=== PATIENT | female | born 1965 | race Caucasian/White ===

== ENCOUNTER 2022-05-09 12:43 | Outpatient (CLI) | payer OTHER | END 2022-05-09 12:53 | disposition home or self-care (01) | LOC: LAB 12:43 | PROVIDERS: ATTEND Urology | DX: N30.00 Acute cystitis without hematuria (principal) ==

== ENCOUNTER 2022-05-09 13:41 | Outpatient (CLI) | payer OTHER | END 2022-05-09 13:48 | disposition home or self-care (01) | LOC: RAD 13:41 | PROVIDERS: ATTEND Urology | DX: N20.0 Calculus of kidney (principal); N30.00 Acute cystitis without hematuria ==

== ENCOUNTER 2022-05-10 07:57 | Outpatient (CLI) | payer OTHER | END 2022-05-10 07:58 | disposition home or self-care (01) | LOC: LAB 07:57 | PROVIDERS: ATTEND Urology | DX: N20.0 Calculus of kidney (principal) ==

== ENCOUNTER 2022-05-24 09:45 | Inpatient (IN) | payer OTHER ==
[~2022-05-24] VITALS: Ht 157.5 cm; Wt 59.9 kg
[2022-05-29] MEDS ORDERED: ESTRADIOL10 MCG (14:44)
== END 2022-05-31 12:25 | disposition home or self-care (01) | DRG 660 ==
LOC: SURG 05-29 09:45 → O/R 05-29 11:23 → SURG 05-29 15:15 → SURH 05-30 11:16
PROVIDERS: ADMIT Urology; ATTEND Urology
PROC: BT1DZZZ Fluoroscopy of Right Kidney, Ureter and Bladder (ICD-10-PCS; 2022-05-29)
PROC: 0TC04ZZ Extirpation of Matter from Right Kidney, Percutaneous Endoscopic Approach (ICD-10-PCS; principal; 2022-05-29 15:15)
DX: N20.0 Calculus of kidney (principal); N39.0 Urinary tract infection, site not specified; Z20.822 Contact with and (suspected) exposure to COVID-19

== ENCOUNTER 2022-06-06 11:53 | Outpatient (CLI) | payer OTHER ==
[~2022-06-06 11:53] MED LIST: ESTRADIOL10 MCG
== END 2022-06-06 11:54 | disposition home or self-care (01) ==
LOC: LAB 11:53
PROVIDERS: ATTEND Urology
DX: D62 Acute posthemorrhagic anemia (principal); N20.0 Calculus of kidney